=== PATIENT | female | born 1955 | race Caucasian/White ===

== ENCOUNTER → 2017-06-10 | Outpatient (CLI) | payer OTHER | LOC: BMCIMAGING 12:34 | PROVIDERS: ATTEND Internal Medicine | DX: E04.2 Nontoxic multinodular goiter (principal); E03.9 Hypothyroidism, unspecified | CPT/HCPCS: 76536-PO ==

== ENCOUNTER → 2017-06-29 | Outpatient (CLI) | payer OTHER | LOC: BMCIMAGING 09:31 | PROVIDERS: ATTEND Orthopaedic Surgery | DX: M17.12 Unilateral primary osteoarthritis, left knee (principal) ==

== ENCOUNTER → 2017-09-04 | Outpatient (CLI) | payer OTHER | LOC: FIMAGING 12:04 | PROVIDERS: ATTEND Orthopaedic Surgery | DX: Z01.818 Encounter for other preprocedural examination (principal); M17.12 Unilateral primary osteoarthritis, left knee ==

== ENCOUNTER 2017-09-14 08:56 | Observation (INO) | payer OTHER ==
--- NOTE | 2017-09-14 07:02 | PDHPUP ---
History & Physical Update H&P update statement: This history and physical update is based on an assessment of the patient which was completed after admission or registration (within 24 hours), but prior to the surgery/procedure.
--- NOTE | 2017-09-14 07:03 | PDIAF ---
- Diagnosis Diagnosis: L knee DJD Code Status: Full Code - Medication Management Discharge Medications: Medications to Continue on Transfer Acetaminophen [Tylenol 325mg (*)] 325 mg PO DAILY PRN 08/25/17 [Last Taken Unknown] Albuterol [Proventil Inhaler HFA (*)] 1 - 2 puffs IH DAILY PRN 08/25/17 [Last Taken Unknown] Herbals/Supplements -Info Only 1 ea PO DAILY 08/25/17 [Last Taken Unknown] Ibuprofen [Motrin (*)] 200 mg PO DAILY PRN 08/25/17 [Last Taken Unknown] Discharge Medications: Refer to the Discharge Home Medication list for PRN reason. - Orders Services needed: Physical Therapy Activity/Weight Bearing Restrictions: WBAT, daily dressing changes, ROM as tolerated, may shower without bandage, no soaking or emersion, seek attention for increasing pain, SOB, CP, leg pain or other focal complaint, f/u up at 2 weeks as previously scheduled - Follow Up Care Current Providers and Referrals: Jocelyne Arenas MD [Primary Care Provider] -
[2017-09-14] MEDS ORDERED: FAMOTIDINE 20 MG TAB PO ONE (11:33)
[2017-09-14] MEDS ORDERED: ACETAMINOPHEN 325 MG TAB PO ONE (11:33)
[2017-09-14] MEDS ORDERED: ceFAZolin 2 GM/SWFI 2 GM/20 ML SYR IVP ONE (11:33)
[2017-09-14] MEDS ORDERED: LIDOCAINE 1% 2 ML INJ ID PRN (11:35)
[2017-09-14] MEDS ORDERED: LR 1,000 ML IV ONE (11:35)
[2017-09-14] MEDS ORDERED: ROPIVACAINE 0.2% 80 MG, EPINEPHrine 0.2 MG, KETOROLAC TROMETHAMINE 30 MG, morphINE 10 M... IU ONE (12:00)
[2017-09-14] MEDS ORDERED: TRANEXAMIC ACID 820 MG in NS 100 ML IV ONE (12:00)
[2017-09-14] MEDS ORDERED: ceFAZolin 1 GM/5 ML SYR ONE (14:42)
--- NOTE | 2017-09-14 14:43 | PDANEPAE ---
ANE History of Present Illness 62 year old female with PMH significant for asthma, well controlled on albuterol. She had the flu starting Marilin alivia, she received zpack, no steroids. Productive cough for three weeks. She has been afebrile. She has not had anesthesia in the past. ANE Past Medical History - Cardiovascular History Hx Hypertension: No Hx Arrhythmias: No Hx Chest Pain: No Hx Coronary Artery / Peripheral Vascular Disease: No Hx CHF / Valvular Disease: No Hx Palpitations: No - Pulmonary History Hx COPD: No Hx Asthma/Reactive Airway Disease: Yes Hx Recent Upper Respiratory Infection: No Hx Oxygen in Use at Home: No Hx Sleep Apnea: No Sleep Apnea Screening Result - Last Documented: Negative Pulmonary History Comment: ASTHMA - ALLERGY TO ANIMALS - Neurologic History Hx Cerebrovascular Accident: No Hx Seizures: No Hx Dementia: No - Endocrine History Hx Diabetes: No - Renal History Hx Renal Disorders: No - Liver History Hx Hepatic Disorders: No - Neurological & Psychiatric Hx Hx Neurological and Psychiatric Disorders: No - Cancer History Hx Cancer: No - Congenital Disorder History Hx Congenital Disorders: No - GI History Hx Gastrointestinal Disorders: No - Other Health History Other Health History: NEG - Chronic Pain History Chronic Pain: Yes (ACHING KNEE) - Surgical History Prior Surgeries: NONE ANE Review of Systems Review of Systems: - Exercise capacity METS (RN): 4 METS ANE Patient History - Allergies Allergies/Adverse Reactions: No Known Allergies Allergy (Unverified 08/25/17 10:55) - Home Medications Home Medications: Acetaminophen [Tylenol 325mg (*)] 325 mg PO DAILY PRN 08/25/17 [Last Taken 09/13 21:00] Albuterol [Proventil Inhaler HFA (*)] 1 - 2 puffs IH DAILY PRN 08/25/17 [Last Taken 09/14/17 11:30] Herbals/Supplements -Info Only 1 ea PO DAILY 08/25/17 [Last Taken 09/07/17] Ibuprofen [Motrin (*)] 200 mg PO DAILY PRN 08/25/17 [Last Taken 09/07/17] - NPO status NPO Since - Liquids (Date): 09/13/17 NPO Since - Liquids (Time): 23:00 NPO Since - Solids (Date): 09/13/17 NPO Since - Solids (Time): 20:00 - Smoking Hx Smoking Status: Never smoked - Family Anes Hx Family Hx Anesthesia Complications: NEG ANE Labs/Vital Signs - Vital Signs Blood Pressure: 142/86 Heart Rate: 93 Respiratory Rate: 16 O2 Sat (%): 94 Height: 160.02 cm Weight: 81.647 kg ANE Physical Exam - Airway Neck exam: FROM Mallampati Score: Class 1 Mouth exam: normal dental/mouth exam, poor dentition - Pulmonary Pulmonary: no respiratory distress - Cardiovascular Cardiovascular: regular rate and rhythym - ASA Status ASA Status: II ANE Anesthesia Plan Anesthesia Plan: general endotracheal anesthesia
[2017-09-14] MEDS ORDERED: ALBUTEROL 3 ML DEYVIAL ONE (14:55)
[2017-09-14] MEDS ORDERED: PROPOFOL/EMULSION 500 MG/50 ML BOTTLE IV ONE (15:02)
[2017-09-14] MEDS ORDERED: MIDAZOLAM 2 MG/2 ML VIAL ONE (15:29)
[2017-09-14] MEDS ORDERED: fentaNYL 250 MCG/5 ML INJ ONE (15:41)
[2017-09-14] MEDS ORDERED: CALCIUM CHLORIDE 1 GM/10 ML INJ ONE (15:51)
[2017-09-14] MEDS ORDERED: THROMBIN (BOVINE) 5,000 UNIT VIAL TP ONE (15:51)
[2017-09-14] MEDS ORDERED: ONDANSETRON 4 MG/2 ML VIAL ONE ×2 (15:55→18:00)
[2017-09-14] MEDS ORDERED: DEXAMETHASONE 4 MG/ML VIAL ONE (15:55)
[2017-09-14] MEDS ORDERED: ONDANSETRON 4 MG/2 ML VIAL IVP PRN ×2 (16:26→16:43)
[2017-09-14] MEDS ORDERED: MEPERIDINE 25 MG/ML SYR IVP PRN (16:26)
[2017-09-14] MEDS ORDERED: NALOXONE HCL 0.4 MG/ML INJ IVP PRN (16:26)
[2017-09-14] MEDS ORDERED: LR 500 ML IV PRN (16:26)
[2017-09-14] MEDS ORDERED: fentaNYL 100 MCG/2 ML INJ IVP PRN (16:26)
[2017-09-14] MEDS ORDERED: ALBUTEROL 3 ML DEYVIAL IH PRN (16:26)
[2017-09-14] MEDS ORDERED: PROMETHAZINE HCL 25 MG SUPPR PR PRN (16:43)
[2017-09-14] MEDS ORDERED: diphenhydrAMINE 25 MG CAP PO PRN (16:43)
[2017-09-14] MEDS ORDERED: POLYETHYLENE GLYCOL 3350 17 GM PKT PO PRN (16:43)
[2017-09-14] MEDS ORDERED: LACTULOSE 20 GM/30 ML UDCUP PO PRN (16:43)
[2017-09-14] MEDS ORDERED: PROMETHAZINE HCL 25 MG/ML INJ IVP PRN (16:43)
[2017-09-14] MEDS ORDERED: TEMAZEPAM 15 MG CAP PO PRN (16:43)
[2017-09-14] MEDS ORDERED: BISACODYL 10 MG SUPP PR PRN (16:43)
[2017-09-14] MEDS ORDERED: DIPHENOXYLATE/ATROPINE LOMOTIL 1 TAB PO PRN (16:43)
[2017-09-14] MEDS ORDERED: MAGNESIUM HYDROXIDE 30 ML UDCUP PO PRN (16:43)
[2017-09-14] MEDS ORDERED: METOCLOPRAMIDE 10 MG/2 ML VIAL IVP PRN (16:43)
[2017-09-14] MEDS ORDERED: ONDANSETRON DISINTEGRATING 4 MG TAB PO PRN (16:43)
[2017-09-14] MEDS ORDERED: DIAZEPAM 5 MG TAB PO PRN (16:43)
[2017-09-14] MEDS ORDERED: LR 1,000 ML IV SCH (17:00)
[2017-09-14] MEDS ORDERED: PROMETHAZINE HCL 25 MG/ML INJ ONE (18:09)
[2017-09-14] MEDS: SENNOSIDES/DOCUSATE SODIUM TAB PO SCH (19:57)
[2017-09-14] MEDS: oxyCODONE IR 5 MG TAB PO PRN (19:57)
[2017-09-14] MEDS: FAMOTIDINE 20 MG TAB PO SCH (19:57)
[2017-09-14] MEDS: ACETAMINOPHEN 325 MG TAB PO SCH ×2 (19:58→23:28)
[2017-09-14] MEDS: TRANEXAMIC ACID 650 MG TAB PO SCH ×2 (20:03→23:28)
[2017-09-14] MEDS: ASPIRIN 325 MG TAB PO SCH (21:49)
[2017-09-14] MEDS: ceFAZolin 2 GM/DEXTROSE 100 ML IV SCH (21:56)
[2017-09-15] MEDS: ACETAMINOPHEN 325 MG TAB PO SCH ×2 (04:35→11:09)
[2017-09-15] MEDS: ceFAZolin 2 GM/DEXTROSE 100 ML IV SCH (04:36)
[2017-09-15] MEDS ORDERED: ALBUTEROL 200 PUFFS/18 GM MDI IH PRN (05:25)
--- NOTE | 2017-09-15 06:40 | POSTANESTH ---
Post Anesthetic Evaluation Cardiovascular Status: Normal, Stable Respiratory Status: Normal, Stable Level of Consciousness/Mental Status: Can Participate in Eval Pain Control: Adequate, Prn Tx Ordered Nausea/Vomiting Control: Adequate, Prn Tx Ordered Complications Possibly Related to Anesthesia: None Noted
[2017-09-15 07:58] VITALS: BP 104/53; PULSE 74; RESP 16; TEMP 98.3; O2SAT 97
[2017-09-15] MEDS: oxyCODONE IR 5 MG TAB PO PRN ×3 (07:58→12:13)
[2017-09-15] MEDS: SENNOSIDES/DOCUSATE SODIUM TAB PO SCH (07:59)
[2017-09-15] MEDS: ASPIRIN 325 MG TAB PO SCH (07:59)
[2017-09-15] MEDS: FAMOTIDINE 20 MG TAB PO SCH (07:59)
--- NOTE | 2017-09-15 08:10 | PDIAF ---
- Diagnosis Diagnosis: L knee DJD Code Status: Full Code - Medication Management Discharge Medications: Medications to Continue on Transfer Acetaminophen [Tylenol 325mg (*)] 325 mg PO DAILY PRN 08/25/17 [Last Taken 09/13 21:00] Albuterol [Proventil Inhaler HFA (*)] 1 - 2 puffs IH DAILY PRN 08/25/17 [Last Taken 09/14/17 11:30] Herbals/Supplements -Info Only 1 ea PO DAILY 08/25/17 [Last Taken 09/07/17] Ibuprofen [Motrin (*)] 200 mg PO DAILY PRN 08/25/17 [Last Taken 09/07/17] Aspirin [Aspirin 325 mg (*)] 325 mg PO DAILY tab 09/15/17 [Last Taken Unknown] Diazepam [Valium 5 MG (*)] 5 mg PO Q6HRS PRN #20 tab 09/15/17 [Last Taken Unknown] oxyCODONE IR [Oxycodone Ir (*)] 5 - 10 mg PO Q3HRS PRN #90 tab 09/15/17 [Last Taken Unknown] Discharge Medications: Refer to the Discharge Home Medication list for PRN reason. - Orders Services needed: Physical Therapy Diet Recommendation: no restrictions on diet Activity/Weight Bearing Restrictions: WBAT, daily dressing changes, ROM as tolerated, may shower without bandage, no soaking or emersion, seek attention for increasing pain, SOB, CP, leg pain or other focal complaint, f/u up at 2 weeks as previously scheduled - Follow Up Care Current Providers and Referrals: Jocelyne Arenas MD [Primary Care Provider] -
--- NOTE | 2017-09-15 08:12 | SOAPPROG ---
SOAP Progress Note Assessment/Plan: Assessment: s/p left tka Plan:stable d/c home if cleared by pt wbat rom as lonnie dvt precautions reviewed 09/15/17 08:10 Subjective: mod pain no cp or sob slept well Objective: Vital Signs Temp Pulse Resp BP Pulse Ox 36.8 C 74 16 104/53 L 97 09/15/17 07:54 09/15/17 07:54 09/15/17 07:54 09/15/17 07:54 09/15/17 07:54 Laboratory Results 09/15/17 05:14 09/14/17 09/15/17 09/16/17 05:59 05:59 05:59 Intake Total 1700 Output Total 205 Balance 1495 dressing intact intact pf,df,ehl toes warm and pink neg homans bilaterally xrays stable, mild lucency med tibial plateau, no fx ICD10 Worksheet Patient Problems: Problems Problem Status Onset Arthritis of left knee Acute - ICD10 Problem Qualifiers (1) Arthritis of left knee
[2017-09-15] MEDS: TRANEXAMIC ACID 650 MG TAB PO SCH (08:53)
--- NOTE | 2017-09-15 10:29 | ASMTCMCOM ---
CM Note CM Note Notes: Patient is POd #1TKA with Dr Webb. She has been discharged home. Per PT (and per patient's request), home PT recommended. Referral sent to [facility] who can accept patient. Address/phone confirmed. Patient's daughter will transport home. CM Discharge plan: home with [facility] Date Signed: 09/15/2017 10:28 AM Electronically Signed By:Olga Arellano RN
--- NOTE | 2017-09-15 14:11 | ASDISCHSUM ---
Discharge Information Plan Status:Home with Home Health Medically Cleared to Leave: Discharge Date:09/15/2017 12:52 PM CM D/C Disposition:Home Health Service ADT D/C Disposition:Home Health Service Projected Discharge Date:09/15/2017 12:52 PM Transportation at D/C:Family Discharge Delay Reason: Follow-Up Date:09/15/2017 12:52 PM Discharge Slot: Final Diagnosis: Placement Information Patient Contact Information Contact Name:CAMILO Relationship:Daughter Address: Work Phone: City: [facility] Phone: State/Zip Code: Email: Financial Information Financial Class:HMO and PPO Plans Primary Plan Desc:HMO [employer] Primary Plan Number:[id number] Secondary Plan Desc: Secondary Plan Number: Assessment Information [facility] CM Progress Note CM Note CM Note Notes: Patient is POd #1TKA with Dr Webb. She has been discharged home. Per PT (and per patient's request), home PT recommended. Referral sent to [facility] who can accept patient. Address/phone confirmed. Patient's daughter will transport home. CM Discharge plan: home with [facility] PT Date Signed: 09/15/2017 10:28 AM Electronically Signed By:Olga Arellano RN Intervention Information Intervention Type:*Incorrect Registration Date of Service:09/14/2017 05:43 PM Patient Type:Inpatient Staff Member:HORTENSIA Webster Kerry Hours: Discipline: Severity: Comment:
== END 2017-09-15 12:52 | disposition home health service (06) ==
LOC: F3E 11:05 → INTOOBSV 11:05 → F3N 16:00
PROVIDERS: ADMIT Orthopaedic Surgery; ATTEND Orthopaedic Surgery
PROC: 0SRD0J9 Replacement of Left Knee Joint with Synthetic Substitute, Cemented, Open Approach (ICD-10-PCS; principal; 2017-09-14 13:15)
PROC: 3E0U3GC Introduction of Other Therapeutic Substance into Joints, Percutaneous Approach (ICD-10-PCS; principal; 2017-09-14 13:15)
PROC: 8E0YXBZ Computer Assisted Procedure of Lower Extremity (ICD-10-PCS; principal; 2017-09-14 13:15)
DX: M17.12 Unilateral primary osteoarthritis, left knee (principal); J45.909 Unspecified asthma, uncomplicated; E04.2 Nontoxic multinodular goiter; Z82.49 Family history of ischemic heart disease and other diseases of the circulatory system
CPT/HCPCS: 0232T; 27447; 73560; 97110; 97161; 97165; 97535; G0378; J0171; J0690; J1100; J1885; J2250; J2405; J2550; J2704; J2795; J3010; J7613

== ENCOUNTER → 2017-09-24 | Outpatient (CLI) | payer OTHER | LOC: BMCIMAGING 09:40 | PROVIDERS: ATTEND Orthopaedic Surgery | DX: Z47.1 Aftercare following joint replacement surgery (principal); Z96.652 Presence of left artificial knee joint ==

== ENCOUNTER → 2017-10-22 | Outpatient (CLI) | payer OTHER | LOC: BMCIMAGING 09:51 → EDSTATUS 09:52 | PROVIDERS: ATTEND Physician Assistant | DX: Z47.1 Aftercare following joint replacement surgery (principal); Z96.652 Presence of left artificial knee joint ==

== ENCOUNTER → 2017-12-03 | Outpatient (CLI) | payer OTHER | LOC: BMCIMAGING 09:23 | PROVIDERS: ATTEND Orthopaedic Surgery | DX: Z47.1 Aftercare following joint replacement surgery (principal); Z96.652 Presence of left artificial knee joint; M25.462 Effusion, left knee ==

== ENCOUNTER → 2018-09-08 | Outpatient (CLI) | payer OTHER | END | disposition home or self-care (01) | LOC: BMCIMAGING 08:08 | PROVIDERS: ATTEND Orthopaedic Surgery | DX: Z09 Encounter for follow-up examination after completed treatment for conditions other than malignant neoplasm (principal); Z96.652 Presence of left artificial knee joint ==